=== PATIENT | female | born 1990 | race Caucasian/White ===

== ENCOUNTER 2022-07-07 00:32 | Inpatient (IN) | payer BC ==
[2022-07-07] MEDS ORDERED: Ondansetron 4 MG/2 ML SDV IVPUSH PRN (00:58)
[2022-07-07] MEDS ORDERED: Methylergonovine 0.2 MG/1 ML Amp IM PRN (00:58)
[2022-07-07] MEDS ORDERED: Butorphanol 1 MG/ML SDV IVPUSH PRN (00:58)
[2022-07-07] MEDS ORDERED: Misoprostol 200 MCG Tab PO PRN (00:58)
[2022-07-07] MEDS ORDERED: Water For Irrigation,Sterile 1,000 ML Container IRR PRN (00:58)
[2022-07-07] MEDS ORDERED: Tranexamic Acid 1,000 MG in Sodium Chloride 0.9% 100 ML IV PRN (00:58)
[2022-07-07] MEDS ORDERED: Sodium Chloride 0.9% 20 ML SDV IV PRN (00:58)
[2022-07-07] MEDS ORDERED: Carboprost Tromethamine 250 MCG/1 mL Vial IM PRN (00:58)
[2022-07-07] MEDS ORDERED: Sodium Chloride 0.9% 2.5 ML Syringe FLUSH PRN (00:58)
[2022-07-07] MEDS ORDERED: Sodium Chloride 0.9% 10 ML Syringe FLUSH PRN (00:58)
[2022-07-07] MEDS ORDERED: Lidocaine 1% 50 ML MDV INJECT PRN (00:58)
[2022-07-07] MEDS ORDERED: Oxytocin/0.9 % Sodium Chloride 30 UNIT/500 ML BAG IV SCH (01:00)
[2022-07-07] MEDS: Lactated Ringers 1,000 ML IV SCH ×2 (01:11→02:54)
[2022-07-07 01:26] LABS: HEMATOCRIT 40.9 % (36.0-46.0); HEMOGLOBIN 13.9 g/dL (12.0-16.0); MEAN CORPUSCULAR HEMOGLOBIN 29.2 pg (27.0-32.0); MEAN CORPUSCULAR VOLUME 85.9 fL (80.0-98.0); PLATELET COUNT,PLT 173 K/uL (150-400); RED BLOOD CELL COUNT 4.76 M/uL (4.30-5.90); WHITE BLOOD CELL COUNT,WBC 11.16 K/uL (4.0-11.0)
[2022-07-07] MEDS ORDERED: ePHEDrine 50 MG/ML SDV IVPUSH PRN ×2 (02:12)
[2022-07-07] MEDS ORDERED: Phenylephrine HCl 0.5 MG/5 ML AMP IVPUSH PRN (02:12)
[2022-07-07] MEDS ORDERED: Ropivacaine HCl/PF 400 MG in Premix Bag 1 BAG EPIDUR SCH (02:15)
[2022-07-07] MEDS ORDERED: Benzocaine/Menthol 20%-0.5% Spray 78 GM Cannister TOP PRN (04:50)
[2022-07-07] MEDS ORDERED: Acetaminophen 500 MG Tab PO PRN ×2 (04:50)
[2022-07-07] MEDS ORDERED: Ibuprofen 400 MG Tab PO PRN (04:50)
[2022-07-07] MEDS ORDERED: Lanolin 100% Cream 7 GM Tube TOP PRN (04:50)
[2022-07-07] MEDS ORDERED: Witch Hazel Medicated Pads 40/Jar TOP PRN (04:50)
[2022-07-07] MEDS ORDERED: Bisacodyl 10 MG Supp RECTAL PRN (04:50)
[2022-07-07] MEDS ORDERED: Ibuprofen 800 MG Tab PO PRN (04:50)
[2022-07-07] MEDS ORDERED: oxyCODONE 5 MG Tab PO PRN (04:50)
[2022-07-07 05:20] LABS: PH,UMBILICAL ARTERIAL 7.263 (7.18-7.38); PH,UMBILICAL VENOUS 7.316 (7.25-7.45)
[2022-07-07] MEDS ORDERED: Carboprost Tromethamine 250 MCG/1 mL Vial ONE (06:35)
[2022-07-07] MEDS: Docusate Sodium 100 MG Cap PO PRN ×2 (11:00→21:19)
[2022-07-08 06:41] LABS: HEMATOCRIT 31.7 % (36.0-46.0); HEMOGLOBIN 10.5 g/dL (12.0-16.0)
== END 2022-07-08 15:05 | disposition home or self-care (01) | DRG 560 ==
LOC: MW.OBCHECK 00:32 → MW.OB 00:33 → MW.OBCHECK 00:59 → OBSVTOIN 04:15 → MW.OB 06:32
PROVIDERS: ADMIT Obstetrics & Gynecology; ATTEND Obstetrics & Gynecology
PROC: 10E0XZZ Delivery of Products of Conception, External Approach (ICD-10-PCS; principal; 2022-07-07)
PROC: 0KQM0ZZ Repair Perineum Muscle, Open Approach (ICD-10-PCS; 2022-07-07)
DX: O48.0 Post-term pregnancy (principal); Z3A.40 40 weeks gestation of pregnancy; Z37.0 Single live birth; O70.1 Second degree perineal laceration during delivery
CPT/HCPCS: 36415; 59025; 59409; 82803; 85014; 85018; 85027; 86592; 86850; 86900; 86901; A9270-GY; J2001; J2590; J3490; J7120

== ENCOUNTER 2024-11-20 22:36 | Inpatient (IN) | payer BC ==
[2024-11-20] MEDS ORDERED: Carboprost Tromethamine 250 MCG/1 mL Vial IM PRN (23:28)
[2024-11-20] MEDS ORDERED: Butorphanol 1 MG/ML SDV IVPUSH PRN (23:28)
[2024-11-20] MEDS ORDERED: Sodium Chloride 0.9% 2.5 ML Syringe FLUSH PRN (23:28)
[2024-11-20] MEDS ORDERED: Water For Irrigation,Sterile 1,000 ML Container IRR PRN (23:28)
[2024-11-20] MEDS ORDERED: Sodium Chloride 0.9% 10 ML Syringe FLUSH PRN (23:28)
[2024-11-20 23:57] LABS: MEAN PLATELET VOLUME 10.2 fL (9.4-12.3); NRBC ABSOLUTE 0.00 K/uL (0.00-0.02); NRBC PERCENT 0.0 /100WBC (0.0-0.2); PLATELET COUNT,PLT 170 K/uL (150-400); RED BLOOD CELL COUNT 4.71 M/uL (4.10-5.30); WHITE BLOOD CELL COUNT,WBC 7.08 K/uL (3.9-11.3)
[2024-11-21] MEDS: Lactated Ringers 1,000 ML IV SCH
[2024-11-21] MEDS: Oxytocin/0.9 % Sodium Chloride 30 UNIT/500 ML BAG IV SCH (02:49)
[2024-11-21] MEDS ORDERED: Lanolin 100% Cream 7 GM Tube TOP PRN (05:21)
[2024-11-21] MEDS ORDERED: Aluminum Hydroxide/Magnesium Hydroxide/Simethicone Susp 30 ML Cup PO PRN (05:21)
[2024-11-21] MEDS ORDERED: Benzocaine/Menthol 20%-0.5% Spray 78 GM Cannister TOP PRN (05:21)
[2024-11-21] MEDS ORDERED: Witch Hazel Medicated Pads 40/Jar TOP PRN (05:21)
[2024-11-21] MEDS ORDERED: Ondansetron 4 MG/2 ML SDV IVPUSH PRN (05:21)
[2024-11-21 05:46] LABS: PH,UMBILICAL ARTERIAL 7.45 (7.18-7.38); PH,UMBILICAL VENOUS 7.44 (7.25-7.45)
[2024-11-22 05:42] LABS: BASOPHILS ABSOLUTE AUTO 0.03 K/uL (0.00-0.20); BASOPHILS PERCENT AUTO 0.4 % (0.0-1.0); EOSINOPHILS ABSOLUTE AUTO 0.12 K/uL (0.00-0.45); EOSINOPHILS PERCENT AUTO 1.7 % (0.0-6.0); IMMATURE GRAN ABSOLUTE AUTO 0.02 K/uL (0.00-0.05); IMMATURE GRAN PERCENT AUTO 0.3 % (0.0-0.4); LYMPHOCYTES ABSOLUTE AUTO 1.60 K/uL (1.00-4.80); LYMPHOCYTES PERCENT AUTO 22.9 % (24.0-44.0); MEAN PLATELET VOLUME 10.1 fL (9.4-12.3); MONOCYTES ABSOLUTE AUTO 0.34 K/uL (0.00-0.80); MONOCYTES PERCENT AUTO 4.9 % (0.0-8.0); NEUTROPHILS ABSOLUTE AUTO 4.88 K/uL (1.80-7.70); NEUTROPHILS PERCENT AUTO 69.8 % (41.0-71.0); NRBC ABSOLUTE 0.00 K/uL (0.00-0.02); NRBC PERCENT 0.0 /100WBC (0.0-0.2); PLATELET COUNT,PLT 141 K/uL (150-400); RED BLOOD CELL COUNT 4.36 M/uL (4.10-5.30); WHITE BLOOD CELL COUNT,WBC 6.99 K/uL (3.9-11.3)
[2024-11-22 06:07] LABS: A/G RATIO 0.7 (0.9-1.6); ALANINE AMINOTRANSFERASE,ALT 17.0 IU/L (14-63); ASPARTATE AMNIOTRANSFERASE,AST 24.0 IU/L (15-37); BILIRUBIN TOTAL 0.2 mg/dL (0.2-1.0); BLOOD UREA NITROGEN,BUN 8.0 mg/dL (7.0-18.0); CARBON DIOXIDE,CO2 24.3 mmol/L (21.0-32.0); CHLORIDE,CL 106.0 mmol/L (98-107); CREATININE 0.7 mg/dL (0.6-1.0); EST CRCL DRUG DOSING (CG) 122.46 mL/min; GLUCOSE RANDOM 77.0 mg/dL (74-106); POTASSIUM,K 3.7 mmol/L (3.5-5.1); PROTEIN TOTAL,TP 5.4 g/dL (6.4-8.2); SODIUM,NA 141.0 mmol/L (136-145)
[2024-11-22 06:12] LABS: ESTIMATED GFR 116.0 mL/min (>60)
== END 2024-11-22 12:24 | disposition home or self-care (01) | DRG 560 ==
LOC: MW.OBCHECK 22:36 → MW.OB 22:36 → UNDOADMOB 23:28 → MW.OB 23:28 → INTOOBSV 23:28 → OBSVTOIN 23:28 → MW.OBCHECK 23:35 → MW.OB 23:35 → UNDODISIN 11-22 12:24
PROVIDERS: ADMIT Obstetrics & Gynecology; ATTEND Obstetrics & Gynecology
PROC: 10E0XZZ Delivery of Products of Conception, External Approach (ICD-10-PCS; principal; 2024-11-21)
PROC: 4A1HXCZ Monitoring of Products of Conception, Cardiac Rate, External Approach (ICD-10-PCS; 2024-11-21)
PROC: 3E0R3BZ Introduction of Anesthetic Agent into Spinal Canal, Percutaneous Approach (ICD-10-PCS; 2024-11-21)
PROC: 00HU33Z Insertion of Infusion Device into Spinal Canal, Percutaneous Approach (ICD-10-PCS; 2024-11-21)
PROC: 0HQ9XZZ Repair Perineum Skin, External Approach (ICD-10-PCS; 2024-11-21)
DX: O48.0 Post-term pregnancy (principal); Z3A.40 40 weeks gestation of pregnancy; Z37.0 Single live birth; O99.824 Streptococcus B carrier state complicating childbirth; O70.0 First degree perineal laceration during delivery
CPT/HCPCS: 36415; 59025; 59409; 80053; 82803; 85025; 85027; 86592; 86850; 86900; 86901; A9270-GY; J0290; J2003; J2590; J7120